=== PATIENT | male | born 1995 | race Caucasian/White ===

== ENCOUNTER 2021-08-05 17:05 | Emergency (ER) | payer SELFPAY ==
[~2021-08-05] VITALS: Ht 167.7 cm; Wt 113.4 kg
[~2021-08-05 17:05] MED LIST: NAPR-243 PO
[2021-08-05] MEDS ORDERED: NS IV 1000 ML 1,000 ML IV STA (17:36)
--- NOTE | 2021-08-05 17:42 | ED Cough/URI ---
General Chief Complaint: COVID19 Suspect/Confirmed Stated Complaint: SOB,COUGH,CHEST PAIN Source: patient Exam Limitations: no limitations (LORA LYNN) History of Present Illness Date Seen by Provider: Aug 05, 2021 Time Seen by Provider: 17:39 Initial Comments Patient is a 26-year-old male who presents ED with shortness of breath and chest pain. Pain located to the substernal chest described as sharp without radiation. This occurs with coughing. Reports shortness of breath with a dry nonproductive cough. Denies history of smoking, asthma symptoms over the past 2 to 3 days. Denies any fever, vomiting, diarrhea, abdominal pain. No recent travels or surgeries. Reports sore throat, mild body aches and fatigue. Up-to-date on his Covid vaccine. Denies taking medication at home. No one else at home with similar symptoms. No known blood disorders, history of PE, DVT, heart disease. (LORA LYNN) Allergies and Home Medications Allergies Uncoded Allergies: HAYFEVER (Allergy, 02/26/11) Patient Home Medication List Home Medication List Reviewed: Yes (KIM SEVILLA MD) Naproxen (Naprosyn) 500 Mg Tablet, 1 EACH PO TID PRN Prescribed by: NYDIA ROBERTS on 02/26/11 1421 Review of Systems Review of Systems Constitutional: No chills, No diaphoresis, No fever, No malaise EENTM: throat pain; No nose congestion Respiratory: cough, short of breath Cardiovascular: chest pain Gastrointestinal: No abdominal pain, No constipation, No dysphagia, No nausea, No vomiting Genitourinary: No decreased output, No discharge Musculoskeletal: No back pain, No joint pain Skin: No change in color, No change in hair/nails Psychiatric/Neurological: Denies Anxiety, Denies Depressed (LORA LYNN) Past Jcocybz-Vazeax-Yuuwby Hx Patient Social History Tobacco Use?: No Use of E-Cig and/or Vaping dev: No Substance use?: No Alcohol Use?: No (LORA LYNN) Immunizations Up To Date Influenza Vaccine Up-to-Date: Yes; Up-to-Date First/Initial COVID19 Vaccinat: 09/14/2020 Second COVID19 Vaccination Etienne: 10/13/2020 Third COVID19 Vaccination Date: 06/26/2021 COVID19 Vaccine Appliance Tester: SAVANAH (LORA LYNN) Physical Exam Vital Signs - First Documented 08/05/21 17:17 Temp 37.6 Pulse 130 Resp 20 B/P (MAP) 133/77 (95) Pulse Ox 95 O2 Delivery Room Air (KIM SEVILLA MD) Capillary Refill : (LORA LYNN) Height: '" Weight: lbs. oz. kg; BMI Method:Stated General Appearance: WD/WN, no apparent distress Eyes: Bilateral Eye Normal Inspection, Bilateral Eye PERRL, Bilateral Eye EOMI HEENT: PERRL/EOMI, normal ENT inspection, TMs normal, pharynx normal Neck: non-tender, full range of motion, supple, normal inspection Respiratory: chest non-tender, lungs clear, normal breath sounds, no respiratory distress, no accessory muscle use Cardiovascular: no edema, no gallop, no JVD, tachycardia Gastrointestinal: normal bowel sounds, non tender, soft, no organomegaly Extremities: normal range of motion, non-tender, normal inspection Neurologic/Psychiatric: 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 tested, no motor/sensory deficits, alert, normal mood/affect, oriented x 3 Skin: normal color, warm/dry (LORA LYNN) Focused Exam Lactate Level 08/05/21 17:45: Lactic Acid Level 1.74 (KIM SEVILLA MD) Lactic Acid Level Laboratory Tests Test 08/05/21 17:45 Lactic Acid Level 1.74 MMOL/L (0.50-2.00) (KIM SEVILLA MD) Progress/Results/Core Measures Suspected Sepsis SIRS Temperature: Pulse: Respiratory Rate: Laboratory Tests 08/05/21 17:45: White Blood Count 8.8 Blood Pressure / Mean: 08/05/21 17:45: Lactic Acid Level 1.74 Laboratory Tests 08/05/21 17:45: Creatinine 1.08, Platelet Count 319, Total Bilirubin 0.6 (LORA LYNN) Results/Orders Lab Results Laboratory Tests Test 08/05/21 17:28 08/05/21 17:45 08/05/21 17:54 Range/Units Influenza Type A (RT-PCR) Detected H Not Detecte Influenza Type B (RT-PCR) Not Detected Not Detecte SARS-CoV-2 RNA (RT-PCR) Not Detected Not Detecte White Blood Count 8.8 4.3-11.0 10^3/uL Red Blood Count 5.21 4.30-5.52 10^6/uL Hemoglobin 15.0 13.3-17.7 g/dL Hematocrit 44 40-54 % Mean Corpuscular Volume 84 80-99 fL Mean Corpuscular Hemoglobin 29 25-34 pg Mean Corpuscular Hemoglobin Concent 35 32-36 g/dL Red Cell Distribution Width 13.2 10.0-14.5 % Platelet Count 319 130-400 10^3/uL Mean Platelet Volume 9.3 9.0-12.2 fL Immature Granulocyte % (Auto) 0 % Neutrophils (%) (Auto) 75 42-75 % Lymphocytes (%) (Auto) 10 L 12-44 % Monocytes (%) (Auto) 13 H 0-12 % Eosinophils (%) (Auto) 1 0-10 % Basophils (%) (Auto) 1 0-10 % Neutrophils # (Auto) 6.6 1.8-7.8 10^3/uL Lymphocytes # (Auto) 0.9 L 1.0-4.0 10^3/uL Monocytes # (Auto) 1.1 H 0.0-1.0 10^3/uL Eosinophils # (Auto) 0.1 0.0-0.3 10^3/uL Basophils # (Auto) 0.0 0.0-0.1 10^3/uL Immature Granulocyte # (Auto) 0.0 0.0-0.1 10^3/uL Sodium Level 136 135-145 MMOL/L Potassium Level 3.5 L 3.6-5.0 MMOL/L Chloride Level 103 98-107 MMOL/L Carbon Dioxide Level 21 21-32 MMOL/L Anion Gap 12 5-14 MMOL/L Blood Urea Nitrogen 12 7-18 MG/DL Creatinine 1.08 0.60-1.30 MG/DL Estimat Glomerular Filtration Rate 96 BUN/Creatinine Ratio 11 Glucose Level 120 H 70-105 MG/DL Lactic Acid Level 1.74 0.50-2.00 MMOL/L Calcium Level 8.4 L 8.5-10.1 MG/DL Corrected Calcium 8.3 L 8.5-10.1 MG/DL Total Bilirubin 0.6 0.1-1.0 MG/DL Aspartate Amino Transf (AST/SGOT) 16 5-34 U/L Alanine Aminotransferase (ALT/SGPT) 22 0-55 U/L Alkaline Phosphatase 96 40-136 U/L Troponin I < 0.028 <0.028 NG/ML C-Reactive Protein High Sensitivity 1.65 H 0.00-0.50 MG/DL Total Protein 7.2 6.4-8.2 GM/DL Albumin 4.1 3.2-4.5 GM/DL Lipase 33 8-78 U/L Group A Streptococcus Screen NEGATIVE NEGATIVE (KIM SEVILLA MD) Vital Signs/I&O 08/05/21 08/05/21 17:17 19:05 Temp 37.6 Pulse 130 123 Resp 20 20 B/P (MAP) 133/77 (95) 125/53 Pulse Ox 95 95 O2 Delivery Room Air Room Air (KIM SEVILLA MD) Vital Signs/I&O Capillary Refill : (LORA LYNN) Departure Communication (Admissions) Patient presents ED with flulike symptoms. Symptoms over the past 2 or 3 days. Body aches, fatigue, cough with shortness of breath and chest pain. Chest pain occurs with the cough. No recent travels or surgeries. Patient was tachycardic on arrival. Patient with low-grade temperature. No known cardiac history. Sinus tachycardia. No leg swelling, recent travels or surgeries. Influenza positive. Blood cultures pending. Normal lactic acid. Lab work was otherwise unremarkable. Slightly dehydrated. Patient was given a liter fluid with improvement tachycardia to 114. Recommend a second liter. Patient refused. He is requesting to be discharged at this time. Recommend following up with the tachycardia. Recommend anti-inflammatories. Recommend hydration. Patient was given a dose of Tylenol. Chest x-ray negative for pneumonia, pneumothorax. This appears to be viral in nature. Antibiotics was held. Recommend outpatient follow-up. Conservative treatment with hydration, anti-inflammatories and [id number] medication for the cough. If any worsening symptoms return back to ED. No wheezing noted on exam. No respiratory distress. Not hypoxic. Blood pressure normal. Chest pain has resolved with the cough. Has some tenderness to the chest wall, and states this feels like his chest pain. Further evaluation may be needed for chest pain (LORA LYNN) Impression Primary Impression: Influenza-like symptoms Additional Impression: Tachycardia Disposition: 01 HOME, SELF-CARE Condition: Stable Departure-Patient Inst. Decision time for Depature: 18:53 (LORA LYNN) Referrals: NO,LOCAL PHYSICIAN (PCP) Primary Care Physician [facility] [place] Patient Instructions: Viral Upper Respiratory Infection, Adult (DC) Add. Discharge Instructions: May try [id number] Robitussin for the cough. Recommend hydration. Please follow-up with [facility] for recheck of vital signs or return back to ED if her symptoms worsen. All discharge instructions reviewed with patient and/or family. Voiced understanding. Work/School Note: Work Release Form Date Seen in the Emergency Department: Aug 05, 2021 Return to Work: Aug 12, 2021 ATTENDING PHYSICIAN NOTE: I was physically present as attending physician in the emergency department during the care of this patient, but I was not directly involved in the decision making or delivery of care for this patient. (KIM SEVILLA MD) LORA LYNN Aug 05, 2021 17:42 KIM SEVILLA MD Aug 05, 2021 19:12
[2021-08-05 18:04] LABS: BASOPHILS % (AUTO) 1 % (0-10); EOSINOPHILS # (AUTO) 0.1 10^3/uL (0.0-0.3); EOSINOPHILS % (AUTO) 1 % (0-10); HEMATOCRIT 44 % (40-54); LYMPHOCYTES # (AUTO) 0.9 10^3/uL (1.0-4.0); LYMPHOCYTES % (AUTO) 10 % (12-44); MEAN CORPUSCULAR HEMOGLOBIN 29 pg (25-34); MEAN CORPUSCULAR HGB CONC 35 g/dL (32-36); MEAN CORPUSCULAR VOLUME 84 fL (80-99); MEAN PLATELET VOLUME 9.3 fL (9.0-12.2); MONOCYTES # (AUTO) 1.1 10^3/uL (0.0-1.0); MONOCYTES % (AUTO) 13 % (0-12); NEUTROPHILS # (AUTO) 6.6 10^3/uL (1.8-7.8); NEUTROPHILS % (AUTO) 75 % (42-75); PLATELET COUNT 319 10^3/uL (130-400); WHITE BLOOD COUNT 8.8 10^3/uL (4.3-11.0)
[2021-08-05 18:16] LABS: ALBUMIN 4.1 GM/DL (3.2-4.5); CHLORIDE 103 MMOL/L (98-107); POTASSIUM 3.5 MMOL/L (3.6-5.0); SODIUM 136 MMOL/L (135-145)
[2021-08-05 18:18] LABS: CALCIUM 8.4 MG/DL (8.5-10.1)
[2021-08-05 18:19] LABS: GLUCOSE 120 MG/DL (70-105); TOTAL PROTEIN 7.2 GM/DL (6.4-8.2)
[2021-08-05 18:20] LABS: CARBON DIOXIDE 21 MMOL/L (21-32)
[2021-08-05 18:21] LABS: BILIRUBIN,TOTAL 0.6 MG/DL (0.1-1.0)
[2021-08-05 18:22] LABS: ALKALINE PHOSPHATASE 96 U/L (40-136)
[2021-08-05 18:23] LABS: CREATININE SERUM 1.08 MG/DL (0.60-1.30); GFR ESTIMATED 96
[2021-08-05 18:24] LABS: BUN/CREATININE RATIO 11
[2021-08-05 18:25] LABS: ALANINE AMINOTRANSFERASE 22 U/L (0-55)
[2021-08-05 18:26] LABS: LIPASE 33 U/L (8-78)
--- NOTE | 2021-08-05 18:41 | Diagnostic Imaging Report ---
INDICATION: Chest pain. EXAMINATION: Chest, 08/05/2021. FINDINGS: The cardiomediastinal silhouette is unremarkable. The pulmonary vasculature is within normal limits. The lungs and pleural spaces are clear. IMPRESSION: No evidence of an acute cardiopulmonary process. Dictated by: Dictated on workstation # [id number]
[2021-08-05 19:05] VITALS: BP 125/53
== END 2021-08-05 19:05 | disposition home or self-care (01) ==
LOC: EDUNIT# 17:05 → ER 17:13
DX: J11.1 Influenza due to unidentified influenza virus with other respiratory manifestations (principal); R00.0 Tachycardia, unspecified; Z20.822 Contact with and (suspected) exposure to COVID-19
CPT/HCPCS: 36415; 71045; 80053; 83605; 83690; 84484; 85025; 86141; 87040; 87430; 87636; 93005